=== PATIENT | female | born 1925 | race Caucasian/White ===

== ENCOUNTER → 2016-06-01 | Outpatient (CLI) | payer MEDICARE ==
[2014-04-25 06:30] VITALS: BP 120/62
[~2016-06-01] MED LIST: ACET500T33 PO; AMIO200T2 PO; ASPI-482 PO; ASPI325T4 PO; BACL10TA PO; CALC1TAB PO; CALC600T PO; CALC667C6 PO; CARV12.5 PO; CARV3.12 PO; CARV3.122 PO; COENZYME Q10 21 EACH PO; CYAN10005 PO; CYCL5TAB PO; DIPH25CA58 PO; FURO-68 PO; LISI-338 PO; MAGN400C PO; MELA3TAB PO; POTA20TA82 PO; VITA150T PO; WARF2TAB7 PO
--- NOTE | 2016-06-01 15:26 | KCIC ---
PROCEDURE CT head without contrast. HISTORY Dizziness for [address] head was obtained. One or more of the following individualized dose reduction techniques were utilized for this exam: 1. Automated exposure control. 2. Adjustment of the mA and/or kV according to patient's size. 3. Use of iterative reconstruction technique. COMPARISON July 24, 2013. FINDINGS The ventricles and sulci are within normal limits for age. Minimal probable small-vessel ischemic disease is noted. There is no acute intracranial hemorrhage or extra-axial fluid collection. There is no mass effect or midline shift. Moreland-white differentiation is preserved. There is no depressed skull fracture. The paranasal sinuses and mastoid air cells are clear. IMPRESSION No acute intracranial findings. Brain parenchymal volume loss and minimal probable small-vessel ischemic disease. Electronically signed by: Emil Gamez MD (Jun 01, 2016 15:25:40)
== END | disposition home or self-care (01) ==
LOC: KCIC CT 13:32
PROVIDERS: ATTEND Internal Medicine
DX: R42 Dizziness and giddiness (principal)
CPT/HCPCS: 70450

== ENCOUNTER 2016-11-29 06:15 | Inpatient (IN) | payer MEDICARE ==
[~2016-11-29] VITALS: Ht 165.1 cm; Wt 46.3 kg
[~2016-11-29 06:15] MED LIST changes: -ASPI325T4 PO; +ASPI325T8 PO; -MELA3TAB PO; +MELA3TAB2 PO
[2016-11-29 06:40] LABS: CALCIUM 9.5 mg/dL (8.5-10.1); CREATININE 1.2 mg/dL (0.6-1.0); GFR 42.3; POTASSIUM 4.2 mmol/L (3.5-5.1)
--- NOTE | 2016-11-29 06:45 | PHYS DOC ---
Past Medical History Past Medical History: Heart Disease Past Surgical History: Hip Replacement, Other Additional Past Surgical Histo: mitral valve replacment Alcohol Use: Rarely Drug Use: None Adult General Chief Complaint Chief Complaint: DIZZY/LIGHT HEADED HPI HPI Patient is a 89 year old female who presents with dizziness since waking. She describes it as lightheadedness with ataxia when trying to walk. She normally walks with a cane but she was leaning towards the right when trying to walk this morning. She was going to try and take a shower but this did not improve her symptoms. She had similar episode approximately one month ago but not this severe. No recent medication changes reported. History of COPD and has had chronic increasing shortness of breath. She was diagnosed with the urinary tract infection 1 month ago when she had similar symptoms. No associated shortness of breath or chest pain, she started to develop a slight headache. She has not yet taken her daily baby aspirin. Primary care physician is Dr. Mayberry , various exceptionalities teacher is Dr. Jackman, patient has a pacemaker. Review of Systems Review of Systems Constitutional: Denies fever or chills [] Eyes: Denies change in visual acuity, redness, or eye pain [] HENT: Denies nasal congestion or sore throat [] Respiratory: Denies cough Cardiovascular: Denies chest pain GI: Denies abdominal pain, reports mild nausea nausea, denies vomiting, bloody stools or diarrhea [] : Denies dysuria or hematuria [] Musculoskeletal: Denies back pain or joint pain [] Integument: Denies rash or skin lesions [] Neurologic: Denies focal weakness or sensory changes [] Current Medications Current Medications Current Medications Medications (Trade) Dose Ordered Sig/[place] Start Time Stop Time Status Last Admin Dose Admin Albuterol/ Ipratropium (Duoneb) 3 ml 1X ONCE 11/29/16 07:00 11/29/16 07:01 DC 11/29/16 06:52 3 ML Allergies Allergies Allergies Coded Allergies Type Severity Reaction Last Updated Verified Sulfa (Sulfonamide Antibiotics) Allergy Intermediate 07/24/13 Yes Physical Exam Physical Exam Constitutional: Well developed, well nourished, no acute distress, non-toxic appearance. [] HENT: Normocephalic, atraumatic, bilateral external ears normal, oropharynx moist, no oral exudates, nose normal. [] Eyes: PERRLA, EOMI, conjunctiva normal, no discharge. [] Neck: Normal range of motion, no tenderness, supple, no stridor. [] Cardiovascular:Heart rate regular with regular rhythm, no murmur [] Lungs & Thorax: Bilateral breath sounds, poor to moderate air movement, faint expiratory wheezes, no crackles Abdomen: soft, no tenderness, no masses, no pulsatile masses. [] Skin: Warm, dry, no erythema, no rash. [] Back: No tenderness, no CVA tenderness. [] Extremities: No tenderness, no cyanosis, no clubbing, ROM intact, no edema. [] Neurologic: Alert and oriented X 3, normal motor function, normal sensory function, cranial nerves II through XII intact, bilateral handgrip 5 over 5, hip flexors 5 over 5 bilaterally, plantar and dorsiflexion 5 over 5, normal finger to nose bilaterally, normal [id number] bilaterally, patient is ataxic with gait and needs support Psychologic: Affect normal, judgement normal, mood normal. [] Current Patient Data Vital Signs Vital Signs Date Time Temp Pulse Resp B/P (MAP) Pulse Ox O2 Delivery O2 Flow Rate FiO2 11/29/16 06:54 Room Air 11/29/16 06:15 97.9 75 16 183/91 (121) 92 97.9 Lab Values Laboratory Tests Test 11/29/16 06:23 11/29/16 08:00 White Blood Count 3.8 x10^3/uL (4.0-11.0) L Red Blood Count 4.72 x10^6/uL (3.50-5.40) Hemoglobin 14.0 g/dL (12.0-15.5) Hematocrit 42.4 % (36.0-47.0) Mean Corpuscular Volume 90 fL (79-100) Mean Corpuscular Hemoglobin 30 pg (25-35) Mean Corpuscular Hemoglobin Concent 33 g/dL (31-37) Red Cell Distribution Width 14.2 % (11.5-14.5) Platelet Count 261 x10^3/uL (140-400) Neutrophils (%) (Auto) 53 % (31-73) Lymphocytes (%) (Auto) 25 % (24-48) Monocytes (%) (Auto) 15 % (0-9) H Eosinophils (%) (Auto) 5 % (0-3) H Basophils (%) (Auto) 3 % (0-3) Neutrophils # (Auto) 2.0 x10^3uL (1.8-7.7) Lymphocytes # (Auto) 1.0 x10^3/uL (1.0-4.8) Monocytes # (Auto) 0.6 x10^3/uL (0.0-1.1) Eosinophils # (Auto) 0.2 x10^3/uL (0.0-0.7) Basophils # (Auto) 0.1 x10^3/uL (0.0-0.2) Sodium Level 141 mmol/L (136-145) Potassium Level 4.2 mmol/L (3.5-5.1) Chloride Level 103 mmol/L (98-107) Carbon Dioxide Level 32 mmol/L (21-32) Anion Gap 6 (6-14) Blood Urea Nitrogen 17 mg/dL (7-20) Creatinine 1.2 mg/dL (0.6-1.0) H Estimated GFR (Cockcroft-Gault) 42.3 BUN/Creatinine Ratio 14 (6-20) Glucose Level 91 mg/dL (70-99) Calcium Level 9.5 mg/dL (8.5-10.1) Magnesium Level 2.1 mg/dL (1.8-2.4) Total Bilirubin 0.5 mg/dL (0.2-1.0) Aspartate Amino Transferase (AST) 25 U/L (15-37) Alanine Aminotransferase (ALT) 24 U/L (14-59) Alkaline Phosphatase 53 U/L (46-116) Troponin I Quantitative < 0.017 ng/mL (0.000-0.055) Total Protein 7.3 g/dL (6.4-8.2) Albumin 4.0 g/dL (3.4-5.0) Albumin/Globulin Ratio 1.2 (1.0-1.7) Urine Collection Type Unknown Urine Color Yellow Urine Clarity Clear Urine pH 7.0 Urine Specific [place] <=1.005 Urine Protein Negative mg/dL (NEG-TRACE) Urine Glucose (UA) Negative mg/dL (NEG) Urine Ketones (Stick) Negative mg/dL (NEG) Urine Blood Negative (NEG) Urine Nitrite Negative (NEG) Urine Bilirubin Negative (NEG) Urine Urobilinogen Dipstick 0.2 mg/dL (0.2 mg/dL) Urine Leukocyte Esterase Small (NEG) Urine RBC Occ /HPF (0-2) Urine WBC Occ /HPF (0-4) Urine Squamous Epithelial Cells Few /LPF Urine Bacteria 0 /HPF (0-FEW) Laboratory Tests 11/29/16 06:23 Laboratory Tests 11/29/16 06:23 EKG EKG 63 bpm, sinus, leftward axis, normal intervals, no ST elevation or depression appreciated, nonischemic T waves, interpreted by me[] Radiology/Procedures Radiology/Procedures Chest x-ray: IMPRESSION: 1. Hyperinflation. Correlate for air trapping. No confluent infiltrates. CT head: IMPRESSION: 1. 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 No acute intracranial findings. Course & Med Decision Making Course & Med Decision Making Pertinent Labs and Imaging studies reviewed. (See chart for details) She was given DuoNeb breathing treatment. X-ray, CT, EKG, lab work and urinalysis ordered. CT shows caudate infarct, not acute. 325mg aspirin given. Contacted neurology and hospitalist to admit. CTA performed, no acute finding. Dr. Butts will see pt and Dr. Rand accepted admit. IV fluids given for renal insufficiency with contrast load. Dragon Disclaimer Dragon Disclaimer This electronic medical record was generated, in whole or in part, using a voice recognition dictation system. Departure Departure Impression: Primary Impression: Ataxia Additional Impression: COPD (chronic obstructive pulmonary disease) Disposition: 09 ADMITTED INPATIENT Admitting Physician: Chiquis Rand Condition: GUARDED Referrals: NELIDA MAYBERRY MD (PCP) Problem Qualifiers GERALDINE CASTRO MD Nov 29, 2016 06:45
[2016-11-29 06:46] LABS: ALBUMIN/GLOBULIN RATIO 1.2 (1.0-1.7); MAGNESIUM 2.1 mg/dL (1.8-2.4); TOTAL BILIRUBIN 0.5 mg/dL (0.2-1.0); TOTAL PROTEIN 7.3 g/dL (6.4-8.2)
[2016-11-29 06:50] LABS: BASO # 0.1 x10^3/uL (0.0-0.2); BASO % 3 % (0-3); EOS % 5 % (0-3); HEMATOCRIT 42.4 % (36.0-47.0); LYMPH % 25 % (24-48); MEAN CORPUSCULAR HEMOGLOBIN 30 pg (25-35); MEAN CORPUSCULAR HGB CONC 33 g/dL (31-37); MEAN CORPUSCULAR VOLUME 90 fL (79-100); MONO % 15 % (0-9); NEUT % 53 % (31-73); PLATELET COUNT 261 x10^3/uL (140-400); RED BLOOD COUNT 4.72 x10^6/uL (3.50-5.40); RED CELL DISTRIBUTION WIDTH 14.2 % (11.5-14.5); WHITE BLOOD COUNT 3.8 x10^3/uL (4.0-11.0)
[2016-11-29] MEDS ORDERED: IPRATRPIUM/ALBUTEROL 0.5/2.5MG 3 ML NEBU. NEB ONE (07:00)
--- NOTE | 2016-11-29 07:10 | EKG ---
[facility] [address] [place] [address] Test Date: 2016-11-29 Test Time: 06:25:43 Pat Name: LIZ RICHARDSON Department: Room: Gender: F Apartment Groundskeeper: : [id number] Requested By: GERALDINE CASTRO Order Number: [id number] Reading MD: Measurements Intervals [place] Rate: 63 P: 47 VT: 178 QRS: -41 QRSD: 98 T: 6 QT: 406 QTc: 419 Interpretive Statements SINUS RHYTHM ABNORMAL LEFT AXIS DEVIATION LEFT ANTERIOR FASCICULAR BLOCK CONSIDER LEFT VENTRICULAR HYPERTROPHY QRS(T) CONTOUR ABNORMALITY CONSIDER ANTEROSEPTAL MYOCARDIAL DAMAGE CANNOT RULE OUT INFERIOR MYOCARDIAL DAMAGE RI6.01 Unconfirmed report No previous ECG available for comparison
--- NOTE | 2016-11-29 07:29 | RAD ---
EXAM: Chest one view. HISTORY: Dizziness. COMPARISON: 04/25/2014. FINDINGS: A frontal view of the chest is obtained. A left-sided pacemaker has its leads in the right atrium and right ventricle. Changes of valve replacement are suspected. There are no confluent infiltrates. There is mild scarring or atelectasis in the left base. Hyperinflation suggests chronic obstructive pulmonary disease. There is no pneumothorax or pleural effusion. The heart is not enlarged. A soft tissue calcification in the left axilla has been stable chronically. IMPRESSION: 1. Hyperinflation. Correlate for air trapping. No confluent infiltrates.
--- NOTE | 2016-11-29 07:50 | RAD ---
EXAM: CT head without contrast. HISTORY: Ataxia. TECHNIQUE: Computed tomography of the head was performed without intravenous contrast. COMPARISON: 06/01/2016. FINDINGS: There is no intracranial hemorrhage. A small chronic lacunar infarct in the left caudate head may be new since the prior study. There is mild senescent volume loss for patient age The visualized paranasal sinuses appear clear. The orbits are unremarkable. The temporal bones are unremarkable. The calvarium reveals no suspicious lesions. IMPRESSION: 1. 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 No acute intracranial findings. *One or more of the following individualized dose reduction techniques were utilized for this examination: 1. Automated exposure control. 2. Adjustment of the mA and/or kV according to patient size. 3. Use of iterative reconstruction technique.
[2016-11-29 08:15] LABS: BILIRUBIN,URINE NEGATIVE (NEG); GLUCOSE,URINE NEGATIVE (NEG); NITRITE,URINE NEGATIVE (NEG); PROTEIN,URINE NEGATIVE (NEG-TRACE); UROBILINOGEN,URINE 0.2 mg/dL (0.2 mg/dL)
[2016-11-29] MEDS ORDERED: ASPIRIN 325 MG TABLET PO ONE (08:30)
[2016-11-29 08:33] LABS: RBC,URINE OCC /HPF (0-2); WBC,URINE OCC /HPF (0-4)
[2016-11-29 08:34] LABS: BACTERIA,URINE 0 /HPF (0-FEW); SQUAMOUS EPITHELIAL CELL,UR FEW /LPF
[2016-11-29] MEDS ORDERED: CONTRAST GIVEN MC PRN (08:45)
[2016-11-29] MEDS ORDERED: IV NORMAL SALINE 1000ML BAG 1,000 ML IV ONE (08:45)
[2016-11-29] MEDS ORDERED: IOHEXOL 300 MG/ML 75 ML VIAL IV ONE (08:45)
[2016-11-29] MEDS ORDERED: IV NORMAL SALINE 500ML BAG 500 ML IV ONE (08:45)
--- NOTE | 2016-11-29 09:06 | RAD ---
Indication CTA. CTA, targeted to the major vessels off the arch of the aorta was performed. MIP images were generated and reviewed. Approximately 90 cc of Omnipaque 300 was administered intravenously. Note is made of a noncontrast CT head examination prior to this study. The lung apices are clear. A significant soft tissue finding in the neck is not seen. The visualized mediastinum appears unremarkable. There are degenerative changes in the cervical spine. The origination of the innominate, left common carotid and left subclavian arteries off the arch is unremarkable. The innominate artery bifurcates unremarkably into the right common carotid and right subclavian. That portion of the right subclavian artery which is seen appears normal. The visualized portion of the left subclavian artery is also normal. The right common carotid is unremarkable. There is only minimal plaquing at the bifurcation. There is no significant stenosis. The internal carotid is unremarkable. The horizontal and cavernous and supraclinoid segments are unremarkable. Minimal plaquing of the supraclinoid segment is noted. The left common carotid is also normal. There is no significant plaquing at the bifurcation and there is no study analysis. The internal carotid horizontal and cavernous and supraclinoid segments appear normal. The vertebral arteries originate unremarkably off their respective vertebral arteries. The vertebral arteries unite unremarkably to form the basilar artery. The A1 and M1 segments bilaterally appear unremarkable. Both anterior cerebral arteries are seen and appear unremarkable. Posterior communicating arteries appear normal. In the posterior fossa no significant vascular anomaly is seen. IMPRESSION: No significant vascular anomaly seen
[2016-11-29 10:15] VITALS: BP 160/84
[2016-11-29] MEDS ORDERED: MAGN400T3 PO (11:38)
[2016-11-29] MEDS ORDERED: LEVO50TA5 PO (11:38)
[2016-11-29] MEDS ORDERED: UBID50CA25 PO (11:38)
[2016-11-29] MEDS ORDERED: CYAN10005 PO (11:38)
[2016-11-29] MEDS ORDERED: PROAIR HFA8.5 GM INH (11:38)
[2016-11-29] MEDS ORDERED: APIX2.5T PO (11:38)
[2016-11-29] MEDS ORDERED: ALEN70TA3 PO (11:38)
[2016-11-29] MEDS ORDERED: TIOT18CA IH (11:38)
[2016-11-29] MEDS: IPRATRPIUM/ALBUTEROL 0.5/2.5MG 3 ML NEBU. NEB SCH ×3 (12:00→20:14)
[2016-11-29] MEDS ORDERED: NON FORMULARY ITEM (Albuterol Sulfate (Proair Hfa Inhaler) 1 PUFF) INH PRN (12:00)
[2016-11-29] MEDS ORDERED: ALBUTEROL SULFATE 2.5 MG/3 ML NEBU. NEB PRN (12:00)
--- NOTE | 2016-11-29 12:19 | PDOC1 ---
History and Physical Date of Admission Date of Admission DATE: 11/29/16 TIME: 12:16 History of Present Illness History of Present Illness Patient is a 89 year old female who presents with dizziness since waking. She describes it as lightheadedness with ataxia when trying to walk. She normally walks with a cane but she was leaning towards the right when trying to walk this morning. She was going to try and take a shower but this did not improve her symptoms. She had similar episode approximately one month ago but not this severe. No recent medication changes reported. History of COPD and has had chronic increasing shortness of breath. She was diagnosed with the urinary tract infection 1 month ago when she had similar symptoms. No associated shortness of breath or chest pain, she started to develop a slight headache. She has not yet taken her daily baby aspirin. Primary care physician is Dr. Ocampo , side door worker is Dr. Jackman, patient has a pacemaker. Past Medical History Cardiovascular: HTN, Other (PACER) Pulmonary: COPD GI: No pertinent hx Heme/Onc: No pertinent hx ENT: No pertinent hx Renal/: No pertinent hx Endocrine: No pertinent hx Dermatology: No pertinent hx Past Surgical History Past Surgical History: Other Current Problem List Problem List Problems Medical Problems: (1) Ataxia Status: Acute (2) COPD (chronic obstructive pulmonary disease) Status: Acute Problems: Current Medications Current Medications Current Medications Albuterol/ Ipratropium (Duoneb) 3 ml 1X ONCE NEB Last administered on 06:52; Start 11/29/16 at 07:00; Stop 11/29/16 at 07:01; Status DC Aspirin (Bong Aspirin) 325 mg 1X ONCE PO Last administered on 11/29/16 09: 18; Start 11/29/16 at 08:30; Stop 11/29/16 at 08:31; Status DC Iohexol (Omnipaque 300 Mg/ml) 60 ml 1X ONCE IV Last administered on 08:45; Start 11/29/16 at 08:45; Stop 11/29/16 at 08:46; Status DC Info (Do NOT chart on this entry -- for MONITORING) 1 each PRN DAILY PRN MC SEE COMMENTS; Start 11/29/16 at 08:45; Stop 12/01/16 at 08:44 Sodium Chloride 500 ml @ 500 mls/hr 1X ONCE IV Last administered on t 09:15; Start 11/29/16 at 08:45; Stop 11/29/16 at 09:44; Status DC Sodium Chloride 1,000 ml @ 100 mls/hr 1X ONCE IV ; Start 11/29/16 at 08:45; Stop 11/29/16 at 18:44 Apixaban (Eliquis) 2.5 mg BID PO ; Start 11/29/16 at 12:30 Aspirin (Ecotrin) 81 mg DAILY PO ; Start 11/29/16 at 12:30 Carvedilol (Coreg) 3.125 mg BIDWMEALS PO ; Start 11/29/16 at 12:30 Cyanocobalamin (Vitamin B-12) 2,500 mcg DAILY PO ; Start 11/29/16 at 12:30 Levothyroxine Sodium (Synthroid) 50 mcg DAILY07 PO ; Start 11/29/16 at 12:30 Magnesium Oxide (Magnesium Oxide) 400 mg HS PO ; Start 11/29/16 at 21:00 Non-Formulary Medication 1 puff PRN Q6HRS PRN INH SHORTNESS OF BREATH; Start 11/29/16 at 12:00; Stop 11/29/16 at 12:00; Status DC Non-Formulary Medication 1 cap DAILY IH ; Start 11/30/16 at 09:00; Stop at 09:00; Status DC Budesonide (Pulmicort) 0.5 mg RTBID NEB ; Start 11/29/16 at 21:00 Budesonide (Pulmicort) 0.5 mg 1X ONCE NEB ; Start 11/29/16 at 12:30; Stop at 12:31 Albuterol/ Ipratropium (Duoneb) 3 ml RTQID NEB ; Start 11/29/16 at 12:00 Albuterol Sulfate (Ventolin Neb Soln) 2.5 mg PRN Q6HRS PRN NEB SHORTNESS OF BREATH; Start 11/29/16 at 12:00 Active Scripts Active Reported Vitamin B-12 (Cyanocobalamin (Vitamin B-12)) 1,000 Mcg Tablet 2,500 Mcg PO DAILY Magnesium Oxide 400 Mg Tablet 1 Tab PO HS Coenzyme Q-10 (Ubidecarenone) 50 Mg Capsule 100 Mg PO HS Proair Hfa Inhaler (Albuterol Sulfate) 8.5 Gm Hfa.aer.ad 1 Puff INH PRN Q6HRS PRN Fosamax (Alendronate Sodium) 70 Mg Tablet 1 Tab PO WEEKLY Levothyroxine Sodium 50 Mcg Tablet 1 Tab PO DAILY Spiriva (Tiotropium [place]) 18 Mcg Cap.w.dev 1 Cap IH DAILY Eliquis (Apixaban) 2.5 Mg Tablet 2.5 Mg PO BID Aspir 81 (Aspirin) 81 Mg Tablet.dr 1 Tab PO DAILY Coreg (Carvedilol) 3.125 Mg Tablet 1 Tab PO BID Allergies Allergies: Coded Allergies: Sulfa (Sulfonamide Antibiotics) (Verified Allergy, Intermediate, 07/24/13) ROS General: No: Chills, Night Sweats, Fatigue, Malaise, Appetite, Other PSYCHOLOGICAL ROS: No: Anxiety, Behavioral Disorder, Concentration difficultie , Decreased libido, Depression, Disorientation, Hallucinations, Hostility, Irritablity, Memory difficulties, Mood Swings, Obsessive thoughts, Sleep disturbances, Suicidal ideation, Other Eyes: No Blurry vision, No Decreased vision, No Double vision, No Dry eyes, No Excessive tearing, No Eye Pain, No Itchy Eyes, No Loss of vision, No Photophobia , No Scotomata, No Uses contacts, No Uses glasses, No Other HEENT: No: Heacaches, Visual Changes, Hearing change, Nasal congestion, Nasal discharge, Oral lesions, Sinus pain, Sore Throat, Epistaxis, Sneezing, Snoring, Tinnitus, Vertigo, Vocal changes, Other Respiratory: No: Cough, Hemoptysis, Orthopnea, Pleuritic Pain, Shortness of breath, SOB with excertion, Sputum Changes, Stridor, Tachypnea, Wheezing, Other Cardiovascular: No Chest Pain, No Palpitations, No Orthopnea, No Paroxysmal Noc. Dyspnea, No Edema, No Lt Headedness, No Other Gastrointestinal: No Nausea, No Vomiting, No Abdominal Pain, No Diarrhea, No Constipation, No Melena, No Hematochezia, No Other Genitourinary: No Dysuria, No Frequency, No Incontinence, No Hematuria, No Retention, No Discharge, No Urgency, No Pain, No Flank Pain, No Other, No , No , No , No , No , No , No Musculoskeletal: Yes Joint Stiffness, No Gait Disturbance, No Joint Pain, No Joint Swelling, No Muscle Pain, No Muscular Weakness, No Pain In:, No Swelling In:, No Other Neurological: Yes Dizziness, Yes Gait Disturbance, Yes Weakness, No Behavorial Changes, No Bowel/Bladder ControlChng, No Confusion, No Headaches, No Impaired Coord/balance, No Memory Loss, No Numbness/Tingling, No Seizures, No Speech Problems, No Tremors, No Visual Changes, No Other Skin: No Dry Skin, No Eczema, No Hair Changes, No Lumps, No Mole Changes, No Mottling, No Nail Changes, No Pruritus, No Rash, No Skin Lesion Changes, No Other, No Acne Physical Exam General: Alert, Oriented X3, Cooperative, No acute distress HEENT: Atraumatic, EOMI, Mucous membr. moist/pink Lungs: Normal air movement Heart: no gallops, no murmurs Extremities: No edema, Normal pulses Skin: No significant lesion Neuro: Normal speech, Sensation intact, Cranial nerves 3-12 NL Psych/Mental Status: Mental status NL Vitals Vitals Vital Signs Date Time Temp Pulse Resp B/P (MAP) Pulse Ox O2 Delivery O2 Flow Rate FiO2 11/29/16 10:12 60 24 92 11/29/16 06:54 Room Air 11/29/16 06:15 97.9 183/91 (121) 97.9 Labs Labs Laboratory Tests Test 11/29/16 06:23 11/29/16 08:00 White Blood Count 3.8 x10^3/uL (4.0-11.0) Red Blood Count 4.72 x10^6/uL (3.50-5.40) Hemoglobin 14.0 g/dL (12.0-15.5) Hematocrit 42.4 % (36.0-47.0) Mean Corpuscular Volume 90 fL (79-100) Mean Corpuscular Hemoglobin 30 pg (25-35) Mean Corpuscular Hemoglobin Concent 33 g/dL (31-37) Red Cell Distribution Width 14.2 % (11.5-14.5) Platelet Count 261 x10^3/uL (140-400) Neutrophils (%) (Auto) 53 % (31-73) Lymphocytes (%) (Auto) 25 % (24-48) Monocytes (%) (Auto) 15 % (0-9) Eosinophils (%) (Auto) 5 % (0-3) Basophils (%) (Auto) 3 % (0-3) Neutrophils # (Auto) 2.0 x10^3uL (1.8-7.7) Lymphocytes # (Auto) 1.0 x10^3/uL (1.0-4.8) Monocytes # (Auto) 0.6 x10^3/uL (0.0-1.1) Eosinophils # (Auto) 0.2 x10^3/uL (0.0-0.7) Basophils # (Auto) 0.1 x10^3/uL (0.0-0.2) Sodium Level 141 mmol/L (136-145) Potassium Level 4.2 mmol/L (3.5-5.1) Chloride Level 103 mmol/L (98-107) Carbon Dioxide Level 32 mmol/L (21-32) Anion Gap 6 (6-14) Blood Urea Nitrogen 17 mg/dL (7-20) Creatinine 1.2 mg/dL (0.6-1.0) Estimated GFR (Cockcroft-Gault) 42.3 BUN/Creatinine Ratio 14 (6-20) Glucose Level 91 mg/dL (70-99) Calcium Level 9.5 mg/dL (8.5-10.1) Magnesium Level 2.1 mg/dL (1.8-2.4) Total Bilirubin 0.5 mg/dL (0.2-1.0) Aspartate Amino Transf (AST/SGOT) 25 U/L (15-37) Alanine Aminotransferase (ALT/SGPT) 24 U/L (14-59) Alkaline Phosphatase 53 U/L (46-116) Troponin I Quantitative < 0.017 ng/mL (0.000-0.055) Total Protein 7.3 g/dL (6.4-8.2) Albumin 4.0 g/dL (3.4-5.0) Albumin/Globulin Ratio 1.2 (1.0-1.7) Urine Collection Type Unknown Urine Color Yellow Urine Clarity Clear Urine pH 7.0 Urine Specific [place] <=1.005 Urine Protein Negative mg/dL (NEG-TRACE) Urine Glucose (UA) Negative mg/dL (NEG) Urine Ketones (Stick) Negative mg/dL (NEG) Urine Blood Negative (NEG) Urine Nitrite Negative (NEG) Urine Bilirubin Negative (NEG) Urine Urobilinogen Dipstick 0.2 mg/dL (0.2 mg/dL) Urine Leukocyte Esterase Small (NEG) Urine RBC Occ /HPF (0-2) Urine WBC Occ /HPF (0-4) Urine Squamous Epithelial Cells Few /LPF Urine Bacteria 0 /HPF (0-FEW) Laboratory Tests Test 11/29/16 06:23 11/29/16 08:00 White Blood Count 3.8 x10^3/uL (4.0-11.0) Red Blood Count 4.72 x10^6/uL (3.50-5.40) Hemoglobin 14.0 g/dL (12.0-15.5) Hematocrit 42.4 % (36.0-47.0) Mean Corpuscular Volume 90 fL (79-100) Mean Corpuscular Hemoglobin 30 pg (25-35) Mean Corpuscular Hemoglobin Concent 33 g/dL (31-37) Red Cell Distribution Width 14.2 % (11.5-14.5) Platelet Count 261 x10^3/uL (140-400) Neutrophils (%) (Auto) 53 % (31-73) Lymphocytes (%) (Auto) 25 % (24-48) Monocytes (%) (Auto) 15 % (0-9) Eosinophils (%) (Auto) 5 % (0-3) Basophils (%) (Auto) 3 % (0-3) Neutrophils # (Auto) 2.0 x10^3uL (1.8-7.7) Lymphocytes # (Auto) 1.0 x10^3/uL (1.0-4.8) Monocytes # (Auto) 0.6 x10^3/uL (0.0-1.1) Eosinophils # (Auto) 0.2 x10^3/uL (0.0-0.7) Basophils # (Auto) 0.1 x10^3/uL (0.0-0.2) Sodium Level 141 mmol/L (136-145) Potassium Level 4.2 mmol/L (3.5-5.1) Chloride Level 103 mmol/L (98-107) Carbon Dioxide Level 32 mmol/L (21-32) Anion Gap 6 (6-14) Blood Urea Nitrogen 17 mg/dL (7-20) Creatinine 1.2 mg/dL (0.6-1.0) Estimated GFR (Cockcroft-Gault) 42.3 BUN/Creatinine Ratio 14 (6-20) Glucose Level 91 mg/dL (70-99) Calcium Level 9.5 mg/dL (8.5-10.1) Magnesium Level 2.1 mg/dL (1.8-2.4) Total Bilirubin 0.5 mg/dL (0.2-1.0) Aspartate Amino Transf (AST/SGOT) 25 U/L (15-37) Alanine Aminotransferase (ALT/SGPT) 24 U/L (14-59) Alkaline Phosphatase 53 U/L (46-116) Troponin I Quantitative < 0.017 ng/mL (0.000-0.055) Total Protein 7.3 g/dL (6.4-8.2) Albumin 4.0 g/dL (3.4-5.0) Albumin/Globulin Ratio 1.2 (1.0-1.7) Urine Collection Type Unknown Urine Color Yellow Urine Clarity Clear Urine pH 7.0 Urine Specific [place] <=1.005 Urine Protein Negative mg/dL (NEG-TRACE) Urine Glucose (UA) Negative mg/dL (NEG) Urine Ketones (Stick) Negative mg/dL (NEG) Urine Blood Negative (NEG) Urine Nitrite Negative (NEG) Urine Bilirubin Negative (NEG) Urine Urobilinogen Dipstick 0.2 mg/dL (0.2 mg/dL) Urine Leukocyte Esterase Small (NEG) Urine RBC Occ /HPF (0-2) Urine WBC Occ /HPF (0-4) Urine Squamous Epithelial Cells Few /LPF Urine Bacteria 0 /HPF (0-FEW) VTE Prophylaxis Ordered VTE Prophylaxis Devices: No VTE Pharmacological Prophylaxi: No Assessment/Plan Assessment/Plan new dizzyness and weaekness, present on waking and seeming to improve TIA, CT head and angio neck OK check echo, has pacer, unsure if able to do MRI, will contact [employer], neuro consult Htn, poor control, add norvasc, likely chronic diastolic CHF echo admit VITA CISNEROS MD Nov 29, 2016 12:19
[2016-11-29] MEDS ORDERED: BUDESONIDE 0.5 MG/2 ML NEBU. NEB ONE (12:30)
[2016-11-29] MEDS: ASPIRIN ENTERIC COATED 81 MG TABLET.DR. PO SCH (12:30)
[2016-11-29] MEDS: LEVOTHYROXINE 50 MCG TABLET PO SCH (12:30)
[2016-11-29] MEDS ORDERED: PNEUMOCOCCAL VAX SCREEN BY RX. MC ONE (12:30)
--- NOTE | 2016-11-29 12:56 | PDOC2 ---
NEUROLOGY CONSULT Date of Admission Date of Admission DATE: 11/29/16 TIME: 12:48 Reason for Consult Reason for Consult: Dizziness, possible stroke Referring Physician Referring Physician: Dr. Rand PCP: Dr. Ocampo Source Source: Caregiver, Chart review, Patient History of Present Illness History of Present Illness The patient is an 89-year-old right-handed female who awakened this morning with ataxia. She has had dizziness in the past and several years ago had an episode of dizziness and dysarthria with negative workup. This time there was no dysarthria. She did have a mild headache. There was no numbness, weakness, diplopia, dysphagia, or cognitive change. She is feeling better now. Past Medical History Cardiovascular: Valve insufficiency Pulmonary: COPD CENTRAL NERVOUS SYSTEM: TIA Musculoskeletal: Osteoarthritis ENT: Other (bilateral hearing aids) Endocrine: Hyperthyroidism Past Surgical History Past Surgical History: Pacemaker, Total hip replacement (right), Other (mitral valve replacement) Family History Family History: No pertinent hx Social History Social History , quit smoking, occasional alcohol Current Medications Current Medications Current Medications Albuterol/ Ipratropium (Duoneb) 3 ml 1X ONCE NEB Last administered on 06:52; Start 11/29/16 at 07:00; Stop 11/29/16 at 07:01; Status DC Aspirin (Bong Aspirin) 325 mg 1X ONCE PO Last administered on 11/29/16 09: 18; Start 11/29/16 at 08:30; Stop 11/29/16 at 08:31; Status DC Iohexol (Omnipaque 300 Mg/ml) 60 ml 1X ONCE IV Last administered on 08:45; Start 11/29/16 at 08:45; Stop 11/29/16 at 08:46; Status DC Info (Do NOT chart on this entry -- for MONITORING) 1 each PRN DAILY PRN MC SEE COMMENTS; Start 11/29/16 at 08:45; Stop 12/01/16 at 08:44 Sodium Chloride 500 ml @ 500 mls/hr 1X ONCE IV Last administered on 09:15; Start 11/29/16 at 08:45; Stop 11/29/16 at 09:44; Status DC Sodium Chloride 1,000 ml @ 100 mls/hr 1X ONCE IV ; Start 11/29/16 at 08:45; Stop 11/29/16 at 18:44 Apixaban (Eliquis) 2.5 mg BID PO ; Start 11/29/16 at 12:30 Aspirin (Ecotrin) 81 mg DAILY PO ; Start 11/29/16 at 12:30 Carvedilol (Coreg) 3.125 mg BIDWMEALS PO ; Start 11/29/16 at 12:30 Cyanocobalamin (Vitamin B-12) 2,500 mcg DAILY PO ; Start 11/29/16 at 12:30 Levothyroxine Sodium (Synthroid) 50 mcg DAILY07 PO ; Start 11/29/16 at 12:30 Magnesium Oxide (Magnesium Oxide) 400 mg HS PO ; Start 11/29/16 at 21:00 Non-Formulary Medication 1 puff PRN Q6HRS PRN INH SHORTNESS OF BREATH; Start 11/29/16 at 12:00; Stop 11/29/16 at 12:00; Status DC Non-Formulary Medication 1 cap DAILY IH ; Start 11/30/16 at 09:00; Stop at 09:00; Status DC Budesonide (Pulmicort) 0.5 mg RTBID NEB ; Start 11/29/16 at 21:00 Budesonide (Pulmicort) 0.5 mg 1X ONCE NEB ; Start 11/29/16 at 12:30; Stop at 12:31; Status DC Albuterol/ Ipratropium (Duoneb) 3 ml RTQID NEB ; Start 11/29/16 at 12:00 Albuterol Sulfate (Ventolin Neb Soln) 2.5 mg PRN Q6HRS PRN NEB SHORTNESS OF BREATH; Start 11/29/16 at 12:00 Amlodipine Besylate (Norvasc) 2.5 mg DAILY PO ; Start 11/29/16 at 12:30 Enoxaparin Sodium (Lovenox Per Pharmacy Prophylaxis Dosing) 1 each PRN DAILY PRN MC SEE COMMENTS; Start 11/29/16 at 12:30; Status UNV Pneumococcal Polyvalent Vaccine (Do NOT chart on this placeholder) 1 each 1X ONCE MC ; Start 11/29/16 at 12:30; Stop 11/29/16 at 12:31; Status UNV Pneumococcal Polyvalent Vaccine (Pneumovax 23) 0.5 ml ONCE ONCE VAX IM ; Start 11/29/16 at 13:00; Stop 11/29/16 at 13:01 Active Scripts Active Reported Vitamin B-12 (Cyanocobalamin (Vitamin B-12)) 1,000 Mcg Tablet 2,500 Mcg PO DAILY Magnesium Oxide 400 Mg Tablet 1 Tab PO HS Coenzyme Q-10 (Ubidecarenone) 50 Mg Capsule 100 Mg PO HS Proair Hfa Inhaler (Albuterol Sulfate) 8.5 Gm Hfa.aer.ad 1 Puff INH PRN Q6HRS PRN Fosamax (Alendronate Sodium) 70 Mg Tablet 1 Tab PO WEEKLY Levothyroxine Sodium 50 Mcg Tablet 1 Tab PO DAILY Spiriva (Tiotropium [place]) 18 Mcg Cap.w.dev 1 Cap IH DAILY Eliquis (Apixaban) 2.5 Mg Tablet 2.5 Mg PO BID Aspir 81 (Aspirin) 81 Mg Tablet.dr 1 Tab PO DAILY Coreg (Carvedilol) 3.125 Mg Tablet 1 Tab PO BID Allergies Allergies: Coded Allergies: Sulfa (Sulfonamide Antibiotics) (Verified Allergy, Intermediate, 07/24/13) ROS Review of System Patient denies fevers, chills, weight loss, dyspnea, angina, abdominal pain, change in bowels, or dysuria. 14 point review of systems is negative. Physical Exam Physical Examination PHYSICAL EXAMINATION: Vital signs: see above. General appearance is normal and in no acute distress. HEENT: Normocephalic and nontraumatic. Eyes, nose, ears, and throat are unremarkable. Neck is supple. No lymphadenopathy. No bruits are heard over the carotid artery. No crepitus. NEUROLOGICAL EXAMINATION: Mental Status Examination: Alert. Oriented to time, place, and person. Answers questions and follows commends. Pupils are equal round and reactive to light and accommodation. Extraocular movements are intact. Visual field exam shows no defect on the direct confrontation. No motor or sensory deficits on the facial exam. Uvula in the midline and the soft palate elevated symmetrically. No deviation of the tongue to any direction. Gross hearing is normal. Shoulder shrug normal. Muscle tone is normal. Muscle strength is 5. Deep tendon reflexes are 2+ all around. Plantar reflex is with flexion response bilaterally. [id number] test performance is accurate. Tandem walk test is accurate for age. Alternative movements are accurate. Romberg test is negative. Gait is normal. Sensory exam shows no deficits. No cerebellar signs are elicited. Vitals VITALS Vital Signs Date Time Temp Pulse Resp B/P (MAP) Pulse Ox O2 Delivery O2 Flow Rate FiO2 11/29/16 12:34 Room Air 11/29/16 10:15 98.0 70 18 160/84 (109) 95 98.0 Labs Labs Laboratory Tests Test 11/29/16 06:23 11/29/16 08:00 White Blood Count 3.8 x10^3/uL (4.0-11.0) Red Blood Count 4.72 x10^6/uL (3.50-5.40) Hemoglobin 14.0 g/dL (12.0-15.5) Hematocrit 42.4 % (36.0-47.0) Mean Corpuscular Volume 90 fL (79-100) Mean Corpuscular Hemoglobin 30 pg (25-35) Mean Corpuscular Hemoglobin Concent 33 g/dL (31-37) Red Cell Distribution Width 14.2 % (11.5-14.5) Platelet Count 261 x10^3/uL (140-400) Neutrophils (%) (Auto) 53 % (31-73) Lymphocytes (%) (Auto) 25 % (24-48) Monocytes (%) (Auto) 15 % (0-9) Eosinophils (%) (Auto) 5 % (0-3) Basophils (%) (Auto) 3 % (0-3) Neutrophils # (Auto) 2.0 x10^3uL (1.8-7.7) Lymphocytes # (Auto) 1.0 x10^3/uL (1.0-4.8) Monocytes # (Auto) 0.6 x10^3/uL (0.0-1.1) Eosinophils # (Auto) 0.2 x10^3/uL (0.0-0.7) Basophils # (Auto) 0.1 x10^3/uL (0.0-0.2) Sodium Level 141 mmol/L (136-145) Potassium Level 4.2 mmol/L (3.5-5.1) Chloride Level 103 mmol/L (98-107) Carbon Dioxide Level 32 mmol/L (21-32) Anion Gap 6 (6-14) Blood Urea Nitrogen 17 mg/dL (7-20) Creatinine 1.2 mg/dL (0.6-1.0) Estimated GFR (Cockcroft-Gault) 42.3 BUN/Creatinine Ratio 14 (6-20) Glucose Level 91 mg/dL (70-99) Calcium Level 9.5 mg/dL (8.5-10.1) Magnesium Level 2.1 mg/dL (1.8-2.4) Total Bilirubin 0.5 mg/dL (0.2-1.0) Aspartate Amino Transf (AST/SGOT) 25 U/L (15-37) Alanine Aminotransferase (ALT/SGPT) 24 U/L (14-59) Alkaline Phosphatase 53 U/L (46-116) Troponin I Quantitative < 0.017 ng/mL (0.000-0.055) Total Protein 7.3 g/dL (6.4-8.2) Albumin 4.0 g/dL (3.4-5.0) Albumin/Globulin Ratio 1.2 (1.0-1.7) Urine Collection Type Unknown Urine Color Yellow Urine Clarity Clear Urine pH 7.0 Urine Specific [place] <=1.005 Urine Protein Negative mg/dL (NEG-TRACE) Urine Glucose (UA) Negative mg/dL (NEG) Urine Ketones (Stick) Negative mg/dL (NEG) Urine Blood Negative (NEG) Urine Nitrite Negative (NEG) Urine Bilirubin Negative (NEG) Urine Urobilinogen Dipstick 0.2 mg/dL (0.2 mg/dL) Urine Leukocyte Esterase Small (NEG) Urine RBC Occ /HPF (0-2) Urine WBC Occ /HPF (0-4) Urine Squamous Epithelial Cells Few /LPF Urine Bacteria 0 /HPF (0-FEW) Laboratory Tests Test 11/29/16 06:23 11/29/16 08:00 White Blood Count 3.8 x10^3/uL (4.0-11.0) Red Blood Count 4.72 x10^6/uL (3.50-5.40) Hemoglobin 14.0 g/dL (12.0-15.5) Hematocrit 42.4 % (36.0-47.0) Mean Corpuscular Volume 90 fL (79-100) Mean Corpuscular Hemoglobin 30 pg (25-35) Mean Corpuscular Hemoglobin Concent 33 g/dL (31-37) Red Cell Distribution Width 14.2 % (11.5-14.5) Platelet Count 261 x10^3/uL (140-400) Neutrophils (%) (Auto) 53 % (31-73) Lymphocytes (%) (Auto) 25 % (24-48) Monocytes (%) (Auto) 15 % (0-9) Eosinophils (%) (Auto) 5 % (0-3) Basophils (%) (Auto) 3 % (0-3) Neutrophils # (Auto) 2.0 x10^3uL (1.8-7.7) Lymphocytes # (Auto) 1.0 x10^3/uL (1.0-4.8) Monocytes # (Auto) 0.6 x10^3/uL (0.0-1.1) Eosinophils # (Auto) 0.2 x10^3/uL (0.0-0.7) Basophils # (Auto) 0.1 x10^3/uL (0.0-0.2) Sodium Level 141 mmol/L (136-145) Potassium Level 4.2 mmol/L (3.5-5.1) Chloride Level 103 mmol/L (98-107) Carbon Dioxide Level 32 mmol/L (21-32) Anion Gap 6 (6-14) Blood Urea Nitrogen 17 mg/dL (7-20) Creatinine 1.2 mg/dL (0.6-1.0) Estimated GFR (Cockcroft-Gault) 42.3 BUN/Creatinine Ratio 14 (6-20) Glucose Level 91 mg/dL (70-99) Calcium Level 9.5 mg/dL (8.5-10.1) Magnesium Level 2.1 mg/dL (1.8-2.4) Total Bilirubin 0.5 mg/dL (0.2-1.0) Aspartate Amino Transf (AST/SGOT) 25 U/L (15-37) Alanine Aminotransferase (ALT/SGPT) 24 U/L (14-59) Alkaline Phosphatase 53 U/L (46-116) Troponin I Quantitative < 0.017 ng/mL (0.000-0.055) Total Protein 7.3 g/dL (6.4-8.2) Albumin 4.0 g/dL (3.4-5.0) Albumin/Globulin Ratio 1.2 (1.0-1.7) Urine Collection Type Unknown Urine Color Yellow Urine Clarity Clear Urine pH 7.0 Urine Specific [place] <=1.005 Urine Protein Negative mg/dL (NEG-TRACE) Urine Glucose (UA) Negative mg/dL (NEG) Urine Ketones (Stick) Negative mg/dL (NEG) Urine Blood Negative (NEG) Urine Nitrite Negative (NEG) Urine Bilirubin Negative (NEG) Urine Urobilinogen Dipstick 0.2 mg/dL (0.2 mg/dL) Urine Leukocyte Esterase Small (NEG) Urine RBC Occ /HPF (0-2) Urine WBC Occ /HPF (0-4) Urine Squamous Epithelial Cells Few /LPF Urine Bacteria 0 /HPF (0-FEW) Images Images CT head: FINDINGS: There is no intracranial hemorrhage. A small chronic lacunar infarct in the left caudate head may be new since the prior study. There is mild senescent volume loss for patient age The visualized paranasal sinuses appear clear. The orbits are unremarkable. The temporal bones are unremarkable. The calvarium reveals no suspicious lesions. IMPRESSION: 1. 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 No acute intracranial findings. CTA head and neck: CTA, targeted to the major vessels off the arch of the aorta was performed. MIP images were generated and reviewed. Approximately 90 cc of Omnipaque 300 was administered intravenously. Note is made of a noncontrast CT head examination prior to this study. The lung apices are clear. A significant soft tissue finding in the neck is not seen. The visualized mediastinum appears unremarkable. There are degenerative changes in the cervical spine. The origination of the innominate, left common carotid and left subclavian arteries off the arch is unremarkable. The innominate artery bifurcates unremarkably into the right common carotid and right subclavian. That portion of the right subclavian artery which is seen appears normal. The visualized portion of the left subclavian artery is also normal. The right common carotid is unremarkable. There is only minimal plaquing at the bifurcation. There is no significant stenosis. The internal carotid is unremarkable. The horizontal and cavernous and supraclinoid segments are unremarkable. Minimal plaquing of the supraclinoid segment is noted. The left common carotid is also normal. There is no significant plaquing at the bifurcation and there is no study analysis. The internal carotid horizontal and cavernous and supraclinoid segments appear normal. The vertebral arteries originate unremarkably off their respective vertebral arteries. The vertebral arteries unite unremarkably to form the basilar artery. The A1 and M1 segments bilaterally appear unremarkable. Both anterior cerebral arteries are seen and appear unremarkable. Posterior communicating arteries appear normal. In the posterior fossa no significant vascular anomaly is seen. IMPRESSION: No significant vascular anomaly seen Assessment/Plan Assessment/Plan Impression: Nonspecific dizziness, gait ataxia, which she has had before. This could just be peripheral vestibular dysfunction. There is no other evidence of stroke. There is a finding of new infarct compared to 6 months ago on the head CT in the left caudate but there is no clinical evidence of dysfunction from this lesion. Recommendations: Her pacemaker is MRI compatible so proceed with MRI Echocardiogram She does not need carotid Doppler studies as we did CT angiogram to exclude large vessel occlusive disease Not a candidate for alteplase if only because she awakened with the symptoms. Time of onset is undetermined. Continue aspirin Check lipids, statin if abnormal Continue Eliquis Aim for discharge tomorrow if tests negative. Thank you for letting me help with the patient's care. CHEPE VILCHIS MD Nov 29, 2016 12:56
[2016-11-29] MEDS ORDERED: PNEUMOC CONJ VACC 23-VALENT 0.5 ML VIAL. VAX IM ONE (13:00)
[2016-11-29] MEDS: APIXABAN 2.5 MG TABLET. PO SCH ×2 (13:24→20:37)
[2016-11-29] MEDS: amLODIPine BESYLATE 2.5 MG TABLET PO SCH (13:25)
[2016-11-29] MEDS: CARVEDILOL 3.125 MG TABLET. PO SCH ×2 (13:25→17:33)
[2016-11-29] MEDS: CYANOCOBALAMIN (VITAMIN B-12) 1,000 MCG TABLET. PO SCH (13:25)
[2016-11-29 13:37] VITALS: BP 136/74
[2016-11-29 15:00] VITALS: BP 164/78
--- NOTE | 2016-11-29 16:34 | CARD ---
APPROVED REPORT EXAM: Two-dimensional and M-mode echocardiogram with Doppler and color Doppler. Other Information Quality : Good INDICATION CVA/TIA BUBBLE STUDY FIRST IMAGE Echo Enhancing Agent Agent/Amount Used: Agitated Saline mL 2D DIMENSIONS Left Atrium(2D)3.1 (1.6-4.0cm)IVSd1.1 (0.7-1.1cm) Aortic Root(2D)3.1 (2.0-3.7cm)LVDd3.9 (3.9-5.9cm) LVOT Diameter2.0 (1.8-2.4cm)PWd1.0 (0.7-1.1cm) LVDs2.8 (2.5-4.0cm)FS (%) 28.6 % SV36.3 mlLVEF(%)55.7 (>50%) Aortic Valve AoV Peak Arnel.125.8cm/sAoV VTI26.8cm AO Peak GR.6.3mmHgLVOT Peak Arnel.94.8cm/s AO Mean GR.3mmHgAVA (VMAX)2.36cm2 VINOD (VTI)2.40cm2 Mitral Valve MV E Enlxedcu37.7cm/sMV DECEL [id number] MV A Whwhtjem027.2cm/sE/A Ratio0.7 Tricuspid Valve TR P. [id number]/sRAP [id number] TR Peak Gr.76lsDaNTTK93eoPy Pulmonary Vein S1 Bungxyfr95.7cm/sD2 Cksdjlvk17.1cm/s LEFT VENTRICLE The left ventricle is normal size. There is borderline concentric left ventricular hypertrophy. Left ventricle systolic function is normal. The Ejection Fraction is 55-60%. There is normal LV segmental wall motion. Transmitral Doppler flow pattern is Grade I-abnormal relaxation pattern. RIGHT VENTRICLE The right ventricle is mildly dilated. The right ventricular systolic function is normal. Pacer wire noted in RV and RA. ATRIA The left atrium size is normal. The right atrium size is normal. The interatrial septum is intact wit h no evidence for an atrial septal defect or patent foramen ovale as noted on 2-D or Doppler imaging. Negative bubble study noted. AORTIC VALVE The aortic valve is calcified but opens well. Doppler and Color Flow revealed no significant aortic r egurgitation. There is no significant aortic valvular stenosis. MITRAL VALVE The mitral valve is calcified but opens well. Patient has a history of mitral valave repair. There is no mitral valve stenosis. Doppler and Color-flow revealed trace mitral regurgitation. TRICUSPID VALVE The tricuspid valve is normal in structure and function. Doppler and Color Flow revealed mild to mode rate tricuspid regurgitation. There is mild-moderate pulmonary hypertension. The PA pressure was karen mated at 40 mmHg. PULMONIC VALVE The pulmonary valve is normal in structure and function. Doppler and Color Flow revealed mild pulmoni c valvular regurgitation. There is no pulmonic valvular stenosis. GREAT VESSELS The aortic root is normal in size. The ascending aorta is normal in size. The IVC is normal in size a nd collapses >50% with inspiration. PERICARDIAL EFFUSION There is no pleural effusion. There is no evidence of significant pericardial effusion. Critical Notification Critical Value: No <Conclusion> Left ventricle systolic function is normal. The Ejection Fraction is 55-60%. There is normal LV segmental wall motion. Transmitral Doppler flow pattern is Grade I-abnormal relaxation pattern. Pacer wire noted in RV and RA. Trace mitral regurgitation. Mild to moderate tricuspid regurgitation. The PA pressure was estimated at 40 mmHg. There is no evidence of significant pericardial effusion. Bubble study did not show any evidence of interatrial shunt.
[2016-11-29 17:39] VITALS: BP 158/78
[2016-11-29 19:05] VITALS: BP 128/74
[2016-11-29] MEDS: BUDESONIDE 0.5 MG/2 ML NEBU. NEB SCH (20:14)
[2016-11-29] MEDS ORDERED: MAGNESIUM OXIDE 400 MG TABLET PO SCH (21:00)
[2016-11-29 23:15] VITALS: BP 143/69
[2016-11-30 03:15] VITALS: BP 162/82
[2016-11-30 04:58] LABS: BASO # 0.1 x10^3/uL (0.0-0.2); BASO % 2 % (0-3); EOS % 5 % (0-3); HEMATOCRIT 38.9 % (36.0-47.0); LYMPH # 1.2 x10^3/uL (1.0-4.8); LYMPH % 33 % (24-48); MEAN CORPUSCULAR HEMOGLOBIN 30 pg (25-35); MEAN CORPUSCULAR HGB CONC 33 g/dL (31-37); MEAN CORPUSCULAR VOLUME 89 fL (79-100); MONO % 16 % (0-9); NEUT % 44 % (31-73); PLATELET COUNT 221 x10^3/uL (140-400); RED BLOOD COUNT 4.37 x10^6/uL (3.50-5.40); RED CELL DISTRIBUTION WIDTH 14.2 % (11.5-14.5); WHITE BLOOD COUNT 3.6 x10^3/uL (4.0-11.0)
[2016-11-30 05:11] LABS: ALBUMIN 3.4 g/dL (3.4-5.0); ALBUMIN/GLOBULIN RATIO 1.1 (1.0-1.7); CALCIUM 9.3 mg/dL (8.5-10.1); GFR 52.2; TOTAL BILIRUBIN 0.5 mg/dL (0.2-1.0); TOTAL PROTEIN 6.6 g/dL (6.4-8.2)
[2016-11-30 05:18] LABS: CHOLESTEROL/HDL RATIO 2.9
[2016-11-30] MEDS: LEVOTHYROXINE 50 MCG TABLET PO SCH (06:13)
[2016-11-30 07:00] VITALS: BP 126/78
[2016-11-30] MEDS: IPRATRPIUM/ALBUTEROL 0.5/2.5MG 3 ML NEBU. NEB SCH ×2 (07:14→11:11)
[2016-11-30] MEDS: BUDESONIDE 0.5 MG/2 ML NEBU. NEB SCH (07:14)
--- NOTE | 2016-11-30 08:47 | PDOC ---
PROGRESS NOTES Assessment Problems Medical Problems: (1) Ataxia Status: Acute (2) COPD (chronic obstructive pulmonary disease) Status: Acute Nonspecific dizziness, gait ataxia, which she has had before. This could just be peripheral vestibular dysfunction. There is no other evidence of stroke. There is a finding of new infarct compared to 6 months ago on the head CT in the left caudate but there is no clinical evidence of dysfunction from Plan Await MRI Discontinue aspirin if MRI negative for small-vessel stroke Given normal lipids, lack of evidence for stroke, age, I believe risks exceed benefits of statin Continue Eliquis Okay for discharge if tests negative. Subjective feels better Objective Vital Signs Date Time Temp Pulse Resp B/P (MAP) Pulse Ox O2 Delivery O2 Flow Rate FiO2 11/30/16 07:16 Room Air 11/30/16 07:00 97.4 60 20 126/78 (94) 96 97.4 PHYSICAL EXAM Alert. Oriented to time, place and person. PERRL. EOMI. CN: no focal findings. Muscle tone: normal. Muscle strength: 5/5 DTR: 2+ Plantar reflex: flexor Gait: normal for age, does well with cane Sensory exam: no abnormal findings. No cerebellar signs elicited. Review of Relevant I have reviewed the following items lyndsay (where applicable) has been applied. Labs Laboratory Tests Test 11/29/16 06:23 11/29/16 08:00 11/30/16 03:20 White Blood Count 3.8 x10^3/uL (4.0-11.0) 3.6 x10^3/uL (4.0-11.0) Red Blood Count 4.72 x10^6/uL (3.50-5.40) 4.37 x10^6/uL (3.50-5.40) Hemoglobin 14.0 g/dL (12.0-15.5) 13.0 g/dL (12.0-15.5) Hematocrit 42.4 % (36.0-47.0) 38.9 % (36.0-47.0) Mean Corpuscular Volume 90 fL (79-100) 89 fL (79-100) Mean Corpuscular Hemoglobin 30 pg (25-35) 30 pg (25-35) Mean Corpuscular Hemoglobin Concent 33 g/dL (31-37) 33 g/dL (31-37) Red Cell Distribution Width 14.2 % (11.5-14.5) 14.2 % (11.5-14.5) Platelet Count 261 x10^3/uL (140-400) 221 x10^3/uL (140-400) Neutrophils (%) (Auto) 53 % (31-73) 44 % (31-73) Lymphocytes (%) (Auto) 25 % (24-48) 33 % (24-48) Monocytes (%) (Auto) 15 % (0-9) 16 % (0-9) Eosinophils (%) (Auto) 5 % (0-3) 5 % (0-3) Basophils (%) (Auto) 3 % (0-3) 2 % (0-3) Neutrophils # (Auto) 2.0 x10^3uL (1.8-7.7) 1.6 x10^3uL (1.8-7.7) Lymphocytes # (Auto) 1.0 x10^3/uL (1.0-4.8) 1.2 x10^3/uL (1.0-4.8) Monocytes # (Auto) 0.6 x10^3/uL (0.0-1.1) 0.6 x10^3/uL (0.0-1.1) Eosinophils # (Auto) 0.2 x10^3/uL (0.0-0.7) 0.2 x10^3/uL (0.0-0.7) Basophils # (Auto) 0.1 x10^3/uL (0.0-0.2) 0.1 x10^3/uL (0.0-0.2) Sodium Level 141 mmol/L (136-145) 144 mmol/L (136-145) Potassium Level 4.2 mmol/L (3.5-5.1) 4.0 mmol/L (3.5-5.1) Chloride Level 103 mmol/L (98-107) 105 mmol/L (98-107) Carbon Dioxide Level 32 mmol/L (21-32) 31 mmol/L (21-32) Anion Gap 6 (6-14) 8 (6-14) Blood Urea Nitrogen 17 mg/dL (7-20) 16 mg/dL (7-20) Creatinine 1.2 mg/dL (0.6-1.0) 1.0 mg/dL (0.6-1.0) Estimated GFR (Cockcroft-Gault) 42.3 52.2 BUN/Creatinine Ratio 14 (6-20) 16 (6-20) Glucose Level 91 mg/dL (70-99) 91 mg/dL (70-99) Calcium Level 9.5 mg/dL (8.5-10.1) 9.3 mg/dL (8.5-10.1) Magnesium Level 2.1 mg/dL (1.8-2.4) Total Bilirubin 0.5 mg/dL (0.2-1.0) 0.5 mg/dL (0.2-1.0) Aspartate Amino Transf (AST/SGOT) 25 U/L (15-37) 21 U/L (15-37) Alanine Aminotransferase (ALT/SGPT) 24 U/L (14-59) 19 U/L (14-59) Alkaline Phosphatase 53 U/L (46-116) 45 U/L (46-116) Troponin I Quantitative < 0.017 ng/mL (0.000-0.055) Total Protein 7.3 g/dL (6.4-8.2) 6.6 g/dL (6.4-8.2) Albumin 4.0 g/dL (3.4-5.0) 3.4 g/dL (3.4-5.0) Albumin/Globulin Ratio 1.2 (1.0-1.7) 1.1 (1.0-1.7) Urine Collection Type Unknown Urine Color Yellow Urine Clarity Clear Urine pH 7.0 Urine Specific [place] <=1.005 Urine Protein Negative mg/dL (NEG-TRACE) Urine Glucose (UA) Negative mg/dL (NEG) Urine Ketones (Stick) Negative mg/dL (NEG) Urine Blood Negative (NEG) Urine Nitrite Negative (NEG) Urine Bilirubin Negative (NEG) Urine Urobilinogen Dipstick 0.2 mg/dL (0.2 mg/dL) Urine Leukocyte Esterase Small (NEG) Urine RBC Occ /HPF (0-2) Urine WBC Occ /HPF (0-4) Urine Squamous Epithelial Cells Few /LPF Urine Bacteria 0 /HPF (0-FEW) Triglycerides Level 80 mg/dL (0-150) Cholesterol Level 166 mg/dL (0-200) LDL Cholesterol, Calculated 93 mg/dL (0-100) VLDL Cholesterol, Calculated 16 mg/dL (0-40) Non-HDL Cholesterol Calculated 109 mg/dL (0-129) HDL Cholesterol 57 mg/dL (40-60) Cholesterol/HDL Ratio 2.9 Vitamin B12 Level > 2000 pg/mL (247-911) Thyroid Stimulating Hormone (TSH) 2.777 uIU/mL (0.358-3.74) Laboratory Tests Test 11/30/16 03:20 White Blood Count 3.6 x10^3/uL (4.0-11.0) Red Blood Count 4.37 x10^6/uL (3.50-5.40) Hemoglobin 13.0 g/dL (12.0-15.5) Hematocrit 38.9 % (36.0-47.0) Mean Corpuscular Volume 89 fL (79-100) Mean Corpuscular Hemoglobin 30 pg (25-35) Mean Corpuscular Hemoglobin Concent 33 g/dL (31-37) Red Cell Distribution Width 14.2 % (11.5-14.5) Platelet Count 221 x10^3/uL (140-400) Neutrophils (%) (Auto) 44 % (31-73) Lymphocytes (%) (Auto) 33 % (24-48) Monocytes (%) (Auto) 16 % (0-9) Eosinophils (%) (Auto) 5 % (0-3) Basophils (%) (Auto) 2 % (0-3) Neutrophils # (Auto) 1.6 x10^3uL (1.8-7.7) Lymphocytes # (Auto) 1.2 x10^3/uL (1.0-4.8) Monocytes # (Auto) 0.6 x10^3/uL (0.0-1.1) Eosinophils # (Auto) 0.2 x10^3/uL (0.0-0.7) Basophils # (Auto) 0.1 x10^3/uL (0.0-0.2) Sodium Level 144 mmol/L (136-145) Potassium Level 4.0 mmol/L (3.5-5.1) Chloride Level 105 mmol/L (98-107) Carbon Dioxide Level 31 mmol/L (21-32) Anion Gap 8 (6-14) Blood Urea Nitrogen 16 mg/dL (7-20) Creatinine 1.0 mg/dL (0.6-1.0) Estimated GFR (Cockcroft-Gault) 52.2 BUN/Creatinine Ratio 16 (6-20) Glucose Level 91 mg/dL (70-99) Calcium Level 9.3 mg/dL (8.5-10.1) Total Bilirubin 0.5 mg/dL (0.2-1.0) Aspartate Amino Transf (AST/SGOT) 21 U/L (15-37) Alanine Aminotransferase (ALT/SGPT) 19 U/L (14-59) Alkaline Phosphatase 45 U/L (46-116) Total Protein 6.6 g/dL (6.4-8.2) Albumin 3.4 g/dL (3.4-5.0) Albumin/Globulin Ratio 1.1 (1.0-1.7) Triglycerides Level 80 mg/dL (0-150) Cholesterol Level 166 mg/dL (0-200) LDL Cholesterol, Calculated 93 mg/dL (0-100) VLDL Cholesterol, Calculated 16 mg/dL (0-40) Non-HDL Cholesterol Calculated 109 mg/dL (0-129) HDL Cholesterol 57 mg/dL (40-60) Cholesterol/HDL Ratio 2.9 Vitamin B12 Level > 2000 pg/mL (247-911) Thyroid Stimulating Hormone (TSH) 2.777 uIU/mL (0.358-3.74) Medications Current Medications Albuterol/ Ipratropium (Duoneb) 3 ml 1X ONCE NEB Last administered on 06:52; Start 11/29/16 at 07:00; Stop 11/29/16 at 07:01; Status DC Aspirin (Bong Aspirin) 325 mg 1X ONCE PO Last administered on 11/29/16 09: 18; Start 11/29/16 at 08:30; Stop 11/29/16 at 08:31; Status DC Iohexol (Omnipaque 300 Mg/ml) 60 ml 1X ONCE IV Last administered on 08:45; Start 11/29/16 at 08:45; Stop 11/29/16 at 08:46; Status DC Info (Do NOT chart on this entry -- for MONITORING) 1 each PRN DAILY PRN MC SEE COMMENTS; Start 11/29/16 at 08:45; Stop 12/01/16 at 08:44 Sodium Chloride 500 ml @ 500 mls/hr 1X ONCE IV Last administered on 09:15; Start 11/29/16 at 08:45; Stop 11/29/16 at 09:44; Status DC Sodium Chloride 1,000 ml @ 100 mls/hr 1X ONCE IV ; Start 11/29/16 at 08:45; Stop 11/29/16 at 18:44; Status DC Apixaban (Eliquis) 2.5 mg BID PO Last administered on 11/29/16 20:37; Start 11/29/16 at 12:30 Aspirin (Ecotrin) 81 mg DAILY PO ; Start 11/29/16 at 12:30 Carvedilol (Coreg) 3.125 mg BIDWMEALS PO Last administered on 11/29/16 17:33 ; Start 11/29/16 at 12:30 Cyanocobalamin (Vitamin B-12) 2,500 mcg DAILY PO Last administered on 13:25; Start 11/29/16 at 12:30 Levothyroxine Sodium (Synthroid) 50 mcg DAILY07 PO Last administered on 06:13; Start 11/29/16 at 12:30 Magnesium Oxide (Magnesium Oxide) 400 mg HS PO Last administered on 11/29/16 20:37; Start 11/29/16 at 21:00 Non-Formulary Medication 1 puff PRN Q6HRS PRN INH SHORTNESS OF BREATH; Start 11/29/16 at 12:00; Stop 11/29/16 at 12:00; Status DC Non-Formulary Medication 1 cap DAILY IH ; Start 11/30/16 at 09:00; Stop at 09:00; Status DC Budesonide (Pulmicort) 0.5 mg RTBID NEB Last administered on 11/30/16 07:14; Start 11/29/16 at 21:00 Budesonide (Pulmicort) 0.5 mg 1X ONCE NEB ; Start 11/29/16 at 12:30; Stop at 12:31; Status DC Albuterol/ Ipratropium (Duoneb) 3 ml RTQID NEB Last administered on 11/30/16 07:14; Start 11/29/16 at 12:00 Albuterol Sulfate (Ventolin Neb Soln) 2.5 mg PRN Q6HRS PRN NEB SHORTNESS OF BREATH; Start 11/29/16 at 12:00 Amlodipine Besylate (Norvasc) 2.5 mg DAILY PO Last administered on 11/29/16 13:25; Start 11/29/16 at 12:30 Enoxaparin Sodium (Lovenox Per Pharmacy Prophylaxis Dosing) 1 each PRN DAILY PRN MC SEE COMMENTS; Start 11/29/16 at 12:30; Status UNV Pneumococcal Polyvalent Vaccine (Do NOT chart on this placeholder) 1 each 1X ONCE MC ; Start 11/29/16 at 12:30; Stop 11/29/16 at 12:31; Status UNV Pneumococcal Polyvalent Vaccine (Pneumovax 23) 0.5 ml ONCE ONCE VAX IM Last administered on 11/29/16 13:33; Start 11/29/16 at 13:00; Stop 11/29/16 at 13 :01; Status DC Active Scripts Active Reported Vitamin B-12 (Cyanocobalamin (Vitamin B-12)) 1,000 Mcg Tablet 2,500 Mcg PO DAILY Magnesium Oxide 400 Mg Tablet 1 Tab PO HS Coenzyme Q-10 (Ubidecarenone) 50 Mg Capsule 100 Mg PO HS Proair Hfa Inhaler (Albuterol Sulfate) 8.5 Gm Hfa.aer.ad 1 Puff INH PRN Q6HRS PRN Fosamax (Alendronate Sodium) 70 Mg Tablet 1 Tab PO WEEKLY Levothyroxine Sodium 50 Mcg Tablet 1 Tab PO DAILY Spiriva (Tiotropium [place]) 18 Mcg Cap.w.dev 1 Cap IH DAILY Eliquis (Apixaban) 2.5 Mg Tablet 2.5 Mg PO BID Aspir 81 (Aspirin) 81 Mg Tablet.dr 1 Tab PO DAILY Coreg (Carvedilol) 3.125 Mg Tablet 1 Tab PO BID Vitals/I & O Vital Sign - Last 24 Hours 11/29/16 11/29/16 11/29/16 11/29/16 09:25 10:12 10:15 12:34 Temp 98.0 98.0 Pulse 60 60 70 Resp 24 24 18 B/P (MAP) 160/84 (109) Pulse Ox 93 92 95 O2 Delivery Room Air Room Air 11/29/16 11/29/16 11/29/16 11/29/16 12:47 13:25 13:25 13:37 Pulse 77 77 77 B/P (MAP) 136/74 136/74 136/74 (94) O2 Delivery Room Air 11/29/16 11/29/16 11/29/16 11/29/16 15:00 17:33 17:39 19:05 Temp 97.8 97.6 97.8 97.6 Pulse 77 69 69 79 Resp 18 17 B/P (MAP) 164/78 (106) 158/78 158/78 (104) 128/74 (92) Pulse Ox 94 96 O2 Delivery Room Air 11/29/16 11/29/16 11/29/16 11/29/16 20:16 20:17 20:30 23:15 Temp 97.9 97.9 Pulse 79 Resp 16 B/P (MAP) 143/69 (93) Pulse Ox 95 O2 Delivery Room Air Room Air Room Air Room Air 11/30/16 11/30/16 11/30/16 03:15 07:00 07:16 Temp 98.3 97.4 98.3 97.4 Pulse 98 60 Resp 18 20 B/P (MAP) 162/82 (108) 126/78 (94) Pulse Ox 96 96 O2 Delivery Room Air Room Air Room Air Images Echo: LEFT VENTRICLE The left ventricle is normal size. There is borderline concentric left ventricular hypertrophy. Left ventricle systolic function is normal. The Ejection Fraction is 55-60%. There is normal LV segmental wall motion. Transmitral Doppler flow pattern is Grade I-abnormal relaxation pattern. RIGHT VENTRICLE The right ventricle is mildly dilated. The right ventricular systolic function is normal. Pacer wire noted in RV and RA. ATRIA The left atrium size is normal. The right atrium size is normal. The interatrial septum is intact with no evidence for an atrial septal defect or patent foramen ovale as noted on 2-D or Doppler imaging. Negative bubble study noted. AORTIC VALVE The aortic valve is calcified but opens well. Doppler and Color Flow revealed no significant aortic regurgitation. There is no significant aortic valvular stenosis. MITRAL VALVE The mitral valve is calcified but opens well. Patient has a history of mitral valave repair. There is no mitral valve stenosis. Doppler and Color-flow revealed trace mitral regurgitation. TRICUSPID VALVE The tricuspid valve is normal in structure and function. Doppler and Color Flow revealed mild to moderate tricuspid regurgitation. There is mild-moderate pulmonary hypertension. The PA pressure was estimated at 40 mmHg. PULMONIC VALVE The pulmonary valve is normal in structure and function. Doppler and Color Flow revealed mild pulmonic valvular regurgitation. There is no pulmonic valvular stenosis. GREAT VESSELS The aortic root is normal in size. The ascending aorta is normal in size. The IVC is normal in size and collapses >50% with inspiration. PERICARDIAL EFFUSION There is no pleural effusion. There is no evidence of significant pericardial effusion. Critical Notification Critical Value: No <Conclusion> Left ventricle systolic function is normal. The Ejection Fraction is 55-60%. There is normal LV segmental wall motion. Transmitral Doppler flow pattern is Grade I-abnormal relaxation pattern. Pacer wire noted in RV and RA. Trace mitral regurgitation. Mild to moderate tricuspid regurgitation. The PA pressure was estimated at 40 mmHg. There is no evidence of significant pericardial effusion. Bubble study did not show any evidence of interatrial shunt. CHEPE VILCHIS MD Nov 30, 2016 08:47
[2016-11-30] MEDS ORDERED: NON FORMULARY ITEM (Tiotropium Bromide (Spiriva) 1 CAP) IH SCH (09:00)
[2016-11-30] MEDS: CYANOCOBALAMIN (VITAMIN B-12) 1,000 MCG TABLET. PO SCH (09:55)
[2016-11-30] MEDS: APIXABAN 2.5 MG TABLET. PO SCH (09:56)
[2016-11-30] MEDS: CARVEDILOL 3.125 MG TABLET. PO SCH (09:56)
[2016-11-30] MEDS: ASPIRIN ENTERIC COATED 81 MG TABLET.DR. PO SCH (09:56)
[2016-11-30] MEDS: amLODIPine BESYLATE 2.5 MG TABLET PO SCH (09:56)
--- NOTE | 2016-11-30 10:30 | RAD ---
MRI of the brain without contrast 11/30/2016 Clinical History: Dizziness with unstudy gait. TIA/CVA. Technique: Unenhanced T1-weighted sagittal and axial, T2-weighted axial and coronal and FLAIR, gradient echo and diffusion-weighted axial images of the brain were obtained. Findings: Comparison is made to patient's CT scan of the head dated 06/01/2016. There is generalized parenchymal atrophy. Patchy, confluent and several small focal areas of increased signal intensity are seen within the periventricular and subcortical white matter of both cerebral hemispheres along with the brent on the FLAIR and T2-weighted images consistent with areas of small vessel ischemic disease. No acute parenchymal abnormality is seen. No extra-axial fluid collection is seen. There is no MRI evidence of acute ischemia/infarction. The paranasal sinuses are essentially clear. Normal flow voids are seen within the major vascular structures surrounding the brain parenchyma. Impression: No acute parenchymal abnormality is seen. Electronically signed by: Aman Logan MD (11/30/2016 10:26 AM) [id number]
[2016-11-30 11:00] VITALS: BP 130/76
--- NOTE | 2016-12-04 18:27 | DS ---
DATE OF DISCHARGE: 11/30/2016 HOSPITAL COURSE: The patient is an 89-year-old woman who awoke on 11/29/2016 with ataxia, presented to the hospital. For suspicion of CVA, she was admitted and was seen by Neurology. Her symptoms actually resolved spontaneously. On recommendation by Neurology, an MRI was obtained, which did not reveal any acute changes. Echocardiogram with bubble studies likewise was negative and lipid profile was normal. She was therefore continued on home medications including Eliquis. The symptoms were attributed to peripheral vestibular dysfunction as she had had similar symptoms in the past. PHYSICAL EXAM: VS: stable GEN: A&O, NAD CV: RRR PULM: clear ABD: BS+ EXTR: no edema DISCHARGE DATE: 11/30/2016. DISCHARGE DIAGNOSIS: Peripheral vestibular dysfunction. DISCHARGE DISPOSITION: To home. DISCHARGE CONDITION: Improved. DISCHARGE MEDICATIONS: Please refer to MAR. DISCHARGE INSTRUCTIONS: The patient will follow up with her PCP in 10-14 days. ANANDA RECINOS MD DR: AMBIKA/nts JOB#: [id number] / [id number] NELIDA Lanza MD
== END 2016-11-30 14:47 | disposition home or self-care (01) | DRG 149 ==
LOC: ER 06:15 → 2 NORTH 08:25
PROVIDERS: ADMIT Internal Medicine; ATTEND Internal Medicine
DX: H81.90 Unspecified disorder of vestibular function, unspecified ear (principal); I11.0 Hypertensive heart disease with heart failure; I50.32 Chronic diastolic (congestive) heart failure; J44.9 Chronic obstructive pulmonary disease, unspecified; M47.812 Spondylosis without myelopathy or radiculopathy, cervical region; Z96.641 Presence of right artificial hip joint; M19.90 Unspecified osteoarthritis, unspecified site; Z86.73 Personal history of transient ischemic attack (TIA), and cerebral infarction without residual deficits; Z95.0 Presence of cardiac pacemaker; Z95.2 Presence of prosthetic heart valve; Z87.440 Personal history of urinary (tract) infections; Z88.2 Allergy status to sulfonamides
CPT/HCPCS: 99285; C8929; 36415; 70450; 70496; 70498; 70551; 71010; 80053; 80061; 81001; 82607; 83735; 84443; 84484; 85025; 87086; 90732; 93005; 94640; 94760; 96360; J7040; J7620; J7626; Q9967; 92610

== ENCOUNTER → 2017-01-02 | Outpatient (CLI) | payer MEDICARE ==
[~2017-01-02] MED LIST changes: +ALEN70TA3 PO; +APIX2.5T PO; +IOHEXOL 240 MG/ML 50ML VIAL. PO ONE; +IOHEXOL 300 MG/ML 100ML VIAL. IV ONE; +LEVO50TA5 PO; +MAGN400T3 PO; +PROAIR HFA8.5 GM INH; +TIOT18CA IH; +UBID50CA25 PO
--- NOTE | 2017-01-02 15:56 | KCIC ---
CT abdomen and pelvis with contrast HISTORY: Change in bowel habits. Difficulty urinating. Multiple bowel movements. TECHNIQUE: Axial imaging through the abdomen before and after intravenous contrast. Imaging through the pelvis after intravenous contrast. Oral contrast was given. Comparison:None available Exposure: One or more of the following individualized dose reduction techniques were utilized for this examination: 1. Automated exposure control 2. Adjustment of the mA and/or kV according to patient size 3. Use of iterative reconstruction technique. FINDINGS: Lower thorax: Multiple small noncalcified pulmonary nodules are identified in the lung bases. These measure up to 5 mm diameter. Pneumoperitoneum:No gross pneumoperitoneum. Liver: Unremarkable Spleen: Low-density lesion in the spleen, measures 15 mm diameter. This measures slightly greater than cystic density, 26 Hounsfield units. This could represent a complex or hemorrhagic cyst, or a hemangioma. Multiple small calcified granulomata. Pancreas: Unremarkable Adrenals: No evidence of mass. Kidneys: Cyst arises from the right kidney. Gallbladder: No calcified stone Aorta: Atheromatous calcifications of the aorta and major branch origins. No evidence of aneurysm. Lymph nodes: No significant enlargement GI tract: Diverticulosis of the colon. No evidence of wall thickening or pericolonic inflammatory type change. No bowel obstruction identified. Appendix: Not confidently visualized. Ascites: No gross ascites. Urinary bladder: Not opacified or distended, also obscured by artifact from right hip replacement. Bones: Degenerative changes of the spine. There is evidence of spinal and neural foraminal stenosis. IMPRESSION: 1. Multiple small pulmonary nodules in the visualized lung bases. Metastatic etiology is possible. Consider CT chest for further evaluation. 2. Low-density lesion of the spleen, measures slightly greater density than a cyst. This could represent a complex or hemorrhagic cyst, or hemangioma, but other etiologies are not excludable. Splenic ultrasound could further evaluate. Electronically signed by: Epifanio Mojica MD (01/02/2017 3:53 PM) [id number]
== END | disposition home or self-care (01) ==
LOC: KCIC CT 09:30
PROVIDERS: ATTEND Internal Medicine
DX: R91.8 Other nonspecific abnormal finding of lung field (principal); R19.4 Change in bowel habit
CPT/HCPCS: 74178; 82565; Q9966; Q9967

== ENCOUNTER → 2017-01-08 | Outpatient (CLI) | payer MEDICARE ==
[~2017-01-08] MED LIST changes: -IOHEXOL 240 MG/ML 50ML VIAL. PO ONE; -IOHEXOL 300 MG/ML 100ML VIAL. IV ONE
--- NOTE | 2017-01-08 13:15 | RAD ---
CT chest Indication: Lung nodule. Technique: CT chest without IV contrast with multiplanar reformats. Comparison: None Findings: Left chest wall cardiac pacemaker noted with its leads in the right atrium and right ventricle. No axillary, mediastinal or hilar adenopathy. Calcified subcarinal and right hilar lymph node noted. No pericardial or pleural effusion. Biapical pleural scarring noted. Bilateral multiple 2 to 4mm lung nodules noted. Index lesions as follows: - 4 mm nodule in the right upper lobe (series 4 image 54). -3 mm nodule in the right upper lobe (series 4 image 105). -4 mm nodule in the right upper lobe (series 4 image 113). -3 mm nodule in the right middle lobe (series 4 image 173). -3 mm nodule in the left lower lobe (series 4 image 257). -4 mm nodule in the left lower lobe (series 4 image 230) -4 minimal the nodule in the left major fissure (series 4 image 215). 4 mm nodule in the left upper lobe (series 4 image 153). Visualized sections of the liver within normal limits for multiple punctate calcifications in the spleen most likely healed granulomatous disease. Adenoid glands are within normal limits. Atherosclerotic disease of the aorta with heavy calcifications at the origin of the celiac axis and SMA. No suspicious bony lesion. Impression: Multiple bilateral pulmonary nodules and nodular opacities. Differential diagnosis includes infectious, inflammatory or metastatic nodules. Direct correlation with outside study recommended if available. If not follow-up CT chest in 6 months recommended. PQRS Compliance Statement: One or more of the following individualized dose reduction techniques were utilized for this examination: 1. Automated exposure control 2. Adjustment of the mA and/or kV according to patient size 3. Use of iterative reconstruction technique
== END | disposition home or self-care (01) ==
LOC: CT 11:14
PROVIDERS: ATTEND Internal Medicine Critical Care Medicine
DX: R91.8 Other nonspecific abnormal finding of lung field (principal)
CPT/HCPCS: 71250